=== PATIENT | male | born 1945 | race Caucasian/White ===

== ENCOUNTER 2018-05-11 12:55 | Emergency (ER) | payer MEDICARE ==
[~2018-05-11] VITALS: Ht 170.2 cm; Wt 78.6 kg
[2018-05-11 13:20] VITALS: BP 159/95
--- NOTE | 2018-05-11 14:19 | NUR ---
PT NOT IN ROOM.
== END 2018-05-11 14:20 | disposition left against medical advice (07) ==
LOC: ED 14:14
DX: M25.571 Pain in right ankle and joints of right foot (principal)
CPT/HCPCS: 99283

== ENCOUNTER 2019-11-22 14:46 | Emergency (ER) | payer MEDICARE ==
[~2019-11-22] VITALS: Ht 170.2 cm; Wt 77.2 kg
[~2019-11-22 14:46] MED LIST: ASPI-515 PO; ATOR10TA9 PO; CLOP75TA PO; ISOS20TA3 PO; LEVO25TA4 PO; LISI-170 PO; LOVA20TA2 PO; METO25TA91 PO; NITR0.6T4 SL; RANO500T2 PO
[2019-11-22] MEDS ORDERED: ASPIRIN 81 MG TABLET CHEW PO ONE (15:30)
[2019-11-22 15:34] LABS: BASOPHILS # (AUTO) 0.02 x10^3/uL (0-0.1); BASOPHILS % (AUTO) 1 % (0-1); EOSINOPHILS # (AUTO) 0.26 x10^3/uL (0-0.4); EOSINOPHILS % (AUTO) 6 % (1-7); LYMPHOCYTES # (AUTO) 0.76 x10^3/uL (1-3.4); LYMPHOCYTES % (AUTO) 17 % (22-44); MD NO; MEAN CORPUSCULAR HEMOGLOBIN 30.6 pg (27.5-34.5); MEAN CORPUSCULAR HGB CONC 33.5 g/dL (33.2-36.2); MEAN CORPUSCULAR VOLUME 91.4 fL (81-97); MEAN PLATELET VOLUME 8.6 fL (7.4-10.4); MONOCYTES # (AUTO) 0.26 x10^3/uL (0.2-0.8); MONOCYTES % (AUTO) 6 % (2-9); NEUTROPHILS # (AUTO) 3.14 x10^3/uL (1.8-6.8); NEUTROPHILS % (AUTO) 71 % (42-75); PLATELET COUNT 119 x10^3/uL (130-400); RED BLOOD COUNT 3.71 x10^6/uL (4.38-5.82); RED CELL DISTRIBUTION WIDTH 16.8 % (9.4-14.8)
[2019-11-22 15:44] LABS: ALANINE AMINOTRANSFERASE 25 U/L (12-78); ALBUMIN 3.6 g/dL (3.4-5.0); ANION GAP 9 mmol/L (5-15); CALCIUM 9.1 mg/dL (8.5-10.1); CHLORIDE 110 mmol/L (98-107)
[2019-11-22] MEDS ORDERED: ASPIRIN 81 MG TABLET CHEW ONE (15:44)
[2019-11-22] MEDS ORDERED: NITROGLYCERIN SINGLE TAB 0.4 MG SL ONE (15:45)
[2019-11-22 15:49] LABS: ALKALINE PHOSPHATASE 66 U/L (45-117); BILIRUBIN,TOTAL 0.9 mg/dL (0.2-1.0); TOTAL PROTEIN 6.7 g/dL (6.4-8.2); TROPONIN I 0.042 ng/mL (0.000-0.045)
[2019-11-22] MEDS ORDERED: NEOSPORIN OINT. PKT 1 PACKET ONE (15:49)
[2019-11-22] MEDS ORDERED: NITROGLYCERIN OINT 2%, 1GM TP ONE ×2 (15:49→16:00)
--- NOTE | 2019-11-22 16:45 | NUR ---
Patient given discharge instructions and they have confirmed that they understand the instructions. Patient ambulatory with steady gait.
[2019-11-22 16:51] VITALS: BP 127/76
== END 2019-11-22 16:53 | disposition home or self-care (01) ==
LOC: ED 15:32
DX: R07.89 Other chest pain (principal); D64.9 Anemia, unspecified; N28.9 Disorder of kidney and ureter, unspecified; I44.7 Left bundle-branch block, unspecified; I25.2 Old myocardial infarction
CPT/HCPCS: 36415; 71045; 80053; 83690; 84484; 85025; 93005; 99285

== ENCOUNTER 2019-11-29 14:22 | Emergency (ER) | payer MEDICARE ==
[~2019-11-29] VITALS: Ht 170.2 cm; Wt 79.4 kg
[2019-11-29 14:27] VITALS: BP 134/71
--- NOTE | 2019-11-29 14:59 | NUR ---
PT TO ROOM
--- NOTE | 2019-11-29 16:23 | NUR ---
PT LEFT PRIOR TO DISCHARGE. PAPERWORK AT CHARGE DESK
== END 2019-11-29 16:20 ==
LOC: ED 15:00
DX: L03.032 Cellulitis of left toe (principal); M79.672 Pain in left foot; I25.2 Old myocardial infarction; Z87.891 Personal history of nicotine dependence; Z98.61 Coronary angioplasty status
CPT/HCPCS: 99283

== ENCOUNTER 2019-12-13 03:32 | Emergency (ER) | payer MEDICARE ==
[~2019-12-13] VITALS: Ht 170.2 cm; Wt 78.0 kg
[~2019-12-13 03:32] MED LIST changes: +AMOX-291 PO; +ISOS30TA8 PO; +LISI-167 PO; +OMEP20TA62 PO
[2019-12-13 04:38] LABS: MEAN CORPUSCULAR HEMOGLOBIN 30.3 pg (27.5-34.5); MEAN CORPUSCULAR HGB CONC 33.4 g/dL (33.2-36.2); MEAN PLATELET VOLUME 8.7 fL (7.4-10.4); PLATELET COUNT 113 x10^3/uL (130-400); RED BLOOD COUNT 4.12 x10^6/uL (4.38-5.82); RED CELL DISTRIBUTION WIDTH 15.2 % (9.4-14.8)
[2019-12-13 04:44] LABS: ANION GAP 8 mmol/L (5-15); CALCIUM 9.4 mg/dL (8.5-10.1); CHLORIDE 103 mmol/L (98-107)
[2019-12-13 04:48] LABS: TROPONIN I 0.109 ng/mL (0.000-0.045)
[2019-12-13] MEDS ORDERED: SODIUM CHLORIDE 0.9% 1,000ML IVBOLUS ONE (05:00)
[2019-12-13 05:01] LABS: MD YES
[2019-12-13 05:41] VITALS: BP 122/64
[2019-12-13 05:41] LABS: EOS#(MANUAL) 0.16 x10^3/uL (0.0-0.4); EOS% (MANUAL) 6 % (1-7); LYMPH#(MANUAL) 0.57 x10^3/uL (1-3.4); LYMPHS% (MANUAL) 21 % (22-44); MONOS% (MANUAL) 11 % (2-9); SEG#(MANUAL) 1.67 x10^3/uL (1.8-6.8); SEGS% (MANUAL) 62 % (42-75)
[2019-12-13 05:42] LABS: <PLATELET ESTIMATE> DECREASED; <PLT MORPHOLOGY> NORMAL PLT MORPH; <RBC MORPHOLOGY> NORMAL
== END 2019-12-13 05:44 | disposition home or self-care (01) ==
LOC: ED 04:06
DX: R07.89 Other chest pain (principal); I20.8 Other forms of angina pectoris; R94.31 Abnormal electrocardiogram [ECG] [EKG]; I10 Essential (primary) hypertension; I25.2 Old myocardial infarction; I48.91 Unspecified atrial fibrillation; Z87.891 Personal history of nicotine dependence; Z98.61 Coronary angioplasty status
CPT/HCPCS: 36415; 80048; 84484; 85025; 93005; 99284

== ENCOUNTER 2020-01-16 02:50 | Emergency (ER) | payer MEDICARE ==
[~2020-01-16] VITALS: Ht 170.2 cm; Wt 69.8 kg
--- NOTE | 2020-01-16 03:02 | NUR ---
triage note: EKG completed in triage
[2020-01-16] MEDS ORDERED: ACETAMINOPHEN 325 MG TABLET PO ONE (03:30)
[2020-01-16] MEDS ORDERED: ACETAMINOPHEN 325 MG TABLET ONE (03:31)
[2020-01-16 03:49] LABS: BASOPHILS % (AUTO) 1 % (0-1); EOSINOPHILS % (AUTO) 1 % (1-7); LYMPHOCYTES % (AUTO) 11 % (22-44); MEAN CORPUSCULAR HEMOGLOBIN 30.2 pg (27.5-34.5); MEAN CORPUSCULAR HGB CONC 33.6 g/dL (33.2-36.2); MONOCYTES % (AUTO) 6 % (2-9); NEUTROPHILS % (AUTO) 81 % (42-75); PLATELET COUNT 77 x10^3/uL (130-400); RED BLOOD COUNT 4.08 x10^6/uL (4.38-5.82); RED CELL DISTRIBUTION WIDTH 16.9 % (9.4-14.8)
[2020-01-16 03:50] LABS: MD NO
[2020-01-16 03:58] LABS: ALBUMIN 3.4 g/dL (3.4-5.0); ANION GAP 8 mmol/L (5-15); CALCIUM 8.8 mg/dL (8.5-10.1); CHLORIDE 110 mmol/L (98-107); CREATININE 1.01 mg/dL (0.7-1.3)
[2020-01-16 04:02] LABS: TROPONIN I 0.082 ng/mL (0.000-0.045)
[2020-01-16 04:58] VITALS: BP 116/42
== END 2020-01-16 05:00 ==
LOC: ED 04:43
DX: R07.89 Other chest pain (principal); R79.89 Other specified abnormal findings of blood chemistry; I44.7 Left bundle-branch block, unspecified; Z72.9 Problem related to lifestyle, unspecified; Z79.01 Long term (current) use of anticoagulants; I10 Essential (primary) hypertension; I25.2 Old myocardial infarction; Z87.891 Personal history of nicotine dependence
CPT/HCPCS: 36415; 71045; 80048; 82040; 84484; 85025; 93005; 99285

== ENCOUNTER 2020-01-17 22:30 | Inpatient (IN) | payer MEDICARE ==
[~2020-01-17] VITALS: Ht 170.2 cm; Wt 68.5 kg
[2020-01-17] MEDS ORDERED: ASPIRIN 81 MG TABLET CHEW PO ONE (23:00)
[2020-01-17 23:55] LABS: BASOPHILS % (AUTO) 0 % (0-1); EOSINOPHILS % (AUTO) 2 % (1-7); LYMPHOCYTES % (AUTO) 14 % (22-44); MEAN CORPUSCULAR HEMOGLOBIN 29.9 pg (27.5-34.5); MEAN PLATELET VOLUME 8.8 fL (7.4-10.4); MONOCYTES % (AUTO) 4 % (2-9); NEUTROPHILS % (AUTO) 80 % (42-75); PLATELET COUNT 88 x10^3/uL (130-400); RED BLOOD COUNT 4.39 x10^6/uL (4.38-5.82); RED CELL DISTRIBUTION WIDTH 17.6 % (9.4-14.8)
[2020-01-17 23:59] LABS: MD NO
[2020-01-18 00:06] LABS: ALBUMIN 3.7 g/dL (3.4-5.0); ANION GAP 5 mmol/L (5-15); CALCIUM 8.8 mg/dL (8.5-10.1); CHLORIDE 112 mmol/L (98-107)
[2020-01-18 00:13] LABS: ALANINE AMINOTRANSFERASE 40 U/L (12-78); ALKALINE PHOSPHATASE 76 U/L (45-117); BILIRUBIN,TOTAL 0.9 mg/dL (0.2-1.0); CREATININE 1.18 mg/dL (0.7-1.3); TOTAL PROTEIN 7.1 g/dL (6.4-8.2); TROPONIN I 0.061 ng/mL (0.000-0.045)
[2020-01-18] MEDS ORDERED: ASPIRIN 81 MG TABLET CHEW ONE ×2 (01:13→03:02)
--- NOTE | 2020-01-18 01:24 | NUR ---
PT AMBULATED TO THE ROOM WITH A SLOW AND STEADY GAIT. PT PLACED ON MONITORS AND GIVEN 162 ASA. PT IN NAD. CALL LIGHT IN REACH
--- NOTE | 2020-01-18 02:18 | NUR ---
LAB AT BEDSIDE FOR 2ND TROP. VSS. PT HAS NO NEEDS. CALL LIGHT IN REACH
[2020-01-18 02:57] LABS: TROPONIN I 0.141 ng/mL (0.000-0.045)
[2020-01-18] MEDS ORDERED: SODIUM CHLORIDE FLUSH 10ML SYR IVF ONE (03:00)
[2020-01-18] MEDS ORDERED: MORPHINE SULFATE 4 MG/ML, 1ML IVPush PRN (03:00)
[2020-01-18] MEDS ORDERED: NITROGLYCERIN OINT 2%, 1GM TP ONE ×2 (03:00→04:39)
[2020-01-18] MEDS ORDERED: ONDANSETRON 2MG/ML, 2ML IVPush ONE (03:00)
[2020-01-18] MEDS ORDERED: ASPIRIN 81 MG TABLET CHEW PO ONE (03:00)
--- NOTE | 2020-01-18 03:30 | NUR ---
PIV ATTEMPTED X 2 WITH NO LUCK. ANOTHER RN AT BEDSIDE TO PLACE. PT GIVEN 162 MG ASA
[2020-01-18] MEDS ORDERED: HEPARIN 5,000 UNITS/ML, 1ML IV ONE (04:00)
[2020-01-18] MEDS ORDERED: NITROGLYCERIN SINGLE TAB 0.4 MG SL PRN (04:00)
[2020-01-18] MEDS ORDERED: HEPARIN 25,000 UNITS/250ML PMX 250 ML IV PRN (04:00)
[2020-01-18] MEDS ORDERED: morphine SULFATE 10 MG/ML, 1ML IV PRN (04:00)
[2020-01-18] MEDS ORDERED: HEPARIN 5,000 UNITS/ML, 1ML IV PRN (04:00)
--- NOTE | 2020-01-18 04:19 | NUR ---
STILL UNABLE TO OBTAIN PIV. PERFECTO FOURNIER AT BEDSIDE FOR US PIV.
[2020-01-18 04:26] LABS: INTERNATIONAL NORMALIZED RATIO 1.14 (0.93-1.1); PROTHROMBIN TIME 12.1 Seconds (9.6-11.5)
[2020-01-18] MEDS ORDERED: HEPARIN 25,000 UNITS/250ML PMX 250 ML ONE (04:39)
[2020-01-18] MEDS ORDERED: HEPARIN 5,000 UNITS/ML, 1ML ONE (04:39)
--- NOTE | 2020-01-18 04:58 | NUR ---
HEPARIN DRIP STARTED AT 800 UNITS/HR. VSS. ANTI XA ORDER ENTERED. PT IN NAD. CALL LIGHT IN REACH
[2020-01-18 05:29] LABS: CHOLESTEROL, TOTAL 111 mg/dL (140-239); TRIGLYCERIDES 90 mg/dL (50-200); VLDL CHOLESTEROL 18 mg/dL (0-25)
[2020-01-18 05:32] LABS: CHOL/HDL RATIO 2.2; HDL CHOLESTEROL (DIRECT) 50 mg/dL (40-60)
[2020-01-18 05:33] LABS: HDL CHOL % 45 % (26-37); LDL CHOLESTEROL,CALCULATED 43 mg/dL (54-169); LDL/HDL RATIO 0.9 (0.5-3.0)
[2020-01-18 05:41] LABS: TROPONIN I 0.174 ng/mL (0.000-0.045)
[2020-01-18 06:11] VITALS: BP 133/72
[2020-01-18] MEDS: LEVOTHYROXINE 25 MCG TABLET PO SCH (06:29)
[2020-01-18] MEDS: ENOXAPARIN 40 MG/0.4 ML SQ SCH (07:00)
[2020-01-18] MEDS: CLOPIDOGREL 75 MG TABLET PO SCH (08:10)
[2020-01-18] MEDS: ISOSORBIDE MONONITRATE ER 60 MG TABLET PO SCH (08:29)
[2020-01-18] MEDS: LISINOPRIL 5 MG TABLET PO SCH (08:29)
[2020-01-18] MEDS: SODIUM CHLORIDE FLUSH 10ML SYR IVF SCH ×2 (08:30→20:06)
[2020-01-18] MEDS: METOPROLOL SUCCINATE 50 MG TAB.ER.24H PO SCH (08:30)
[2020-01-18] MEDS: OMEPRAZOLE 20 MG CAPSULE.DR PO SCH ×2 (08:30→20:05)
[2020-01-18 08:44] LABS: TROPONIN I 0.177 ng/mL (0.000-0.045)
[2020-01-18] MEDS: SODIUM CHLORIDE 0.9% 1,000 ML IV SCH ×3 (10:06→19:50)
[2020-01-18] MEDS ORDERED: FENTANYL PF 100 MCG/2ML ONE (12:34)
[2020-01-18] MEDS ORDERED: VERAPAMIL 2.5 MG/ML, 2ML ONE (12:34)
[2020-01-18] MEDS ORDERED: HEPARIN 1,000 UNITS/ML, 10ML ONE (12:34)
[2020-01-18] MEDS ORDERED: LIDOCAINE-MPF 1%, 5ML ONE (12:34)
[2020-01-18] MEDS ORDERED: MIDAZOLAM 1 MG/ML, 2ML ONE (12:34)
[2020-01-18] MEDS ORDERED: NITROGLYCERIN 30 MCG/ML, 20ML VIAL ONE (12:34)
[2020-01-18] MEDS ORDERED: BIVALIRUDIN 250 MG ONE (12:39)
[2020-01-18 14:00] VITALS: BP 105/57
[2020-01-18 15:19] LABS: BASOPHILS % (AUTO) 1 % (0-1); EOSINOPHILS % (AUTO) 4 % (1-7); LYMPHOCYTES % (AUTO) 27 % (22-44); MEAN CORPUSCULAR HEMOGLOBIN 30.2 pg (27.5-34.5); MEAN CORPUSCULAR HGB CONC 33.4 g/dL (33.2-36.2); MEAN PLATELET VOLUME 8.7 fL (7.4-10.4); MONOCYTES % (AUTO) 4 % (2-9); NEUTROPHILS % (AUTO) 64 % (42-75); PLATELET COUNT 74 x10^3/uL (130-400); RED BLOOD COUNT 3.73 x10^6/uL (4.38-5.82); RED CELL DISTRIBUTION WIDTH 17.2 % (9.4-14.8)
[2020-01-18 15:27] LABS: MD NO
[2020-01-18 19:20] VITALS: BP 89/52
[2020-01-18 19:52] VITALS: BP 98/50
[2020-01-18] MEDS ORDERED: ATORVASTATIN 80 MG TABLET PO SCH (21:00)
[2020-01-18 21:36] VITALS: BP 103/56
[2020-01-19] MEDS: SODIUM CHLORIDE 0.9% 1,000 ML IV SCH ×2 (00:20→06:30)
[2020-01-19 01:00] VITALS: BP 100/57
[2020-01-19 05:35] LABS: BASOPHILS % (AUTO) 1 % (0-1); EOSINOPHILS % (AUTO) 3 % (1-7); LYMPHOCYTES % (AUTO) 21 % (22-44); MEAN CORPUSCULAR HEMOGLOBIN 30.6 pg (27.5-34.5); MEAN CORPUSCULAR HGB CONC 33.8 g/dL (33.2-36.2); MEAN PLATELET VOLUME 9.2 fL (7.4-10.4); MONOCYTES % (AUTO) 6 % (2-9); NEUTROPHILS % (AUTO) 69 % (42-75); PLATELET COUNT 62 x10^3/uL (130-400); RED BLOOD COUNT 3.23 x10^6/uL (4.38-5.82)
[2020-01-19 05:41] LABS: ANION GAP 5 mmol/L (5-15); CALCIUM 8.3 mg/dL (8.5-10.1); CHLORIDE 116 mmol/L (98-107); CREATININE 1.06 mg/dL (0.7-1.3)
[2020-01-19] MEDS ORDERED: ASPIRIN 81 MG TABLET EC PO SCH (06:00)
[2020-01-19 06:18] LABS: MD SCAN
[2020-01-19] MEDS: LEVOTHYROXINE 25 MCG TABLET PO SCH (06:32)
[2020-01-19] MEDS: ENOXAPARIN 40 MG/0.4 ML SQ SCH (06:33)
[2020-01-19 07:36] VITALS: BP 131/66
[2020-01-19] MEDS: LISINOPRIL 5 MG TABLET PO SCH (09:48)
[2020-01-19] MEDS: OMEPRAZOLE 20 MG CAPSULE.DR PO SCH (09:48)
[2020-01-19] MEDS: CLOPIDOGREL 75 MG TABLET PO SCH (09:48)
[2020-01-19] MEDS: ISOSORBIDE MONONITRATE ER 60 MG TABLET PO SCH (09:48)
[2020-01-19] MEDS: METOPROLOL SUCCINATE 50 MG TAB.ER.24H PO SCH (09:48)
[2020-01-19] MEDS: SODIUM CHLORIDE FLUSH 10ML SYR IVF SCH (09:49)
[2020-01-19 12:04] VITALS: BP 122/63
[2020-01-19] MEDS ORDERED: OMEP20TA62 PO (13:36)
[2020-01-19] MEDS ORDERED: LISI-167 PO (13:36)
[2020-01-19] MEDS ORDERED: LEVO25TA4 PO (13:36)
[2020-01-19] MEDS ORDERED: ATOR-2 PO (13:36)
[2020-01-19] MEDS ORDERED: CLOP75TA PO (13:36)
[2020-01-19] MEDS ORDERED: ISOS30TA8 PO (13:36)
[2020-01-19] MEDS ORDERED: NITR0.6T4 SL (13:36)
[2020-01-19] MEDS ORDERED: METO25TA91 PO (13:36)
[2020-01-19] MEDS ORDERED: ASPI-515 PO (13:36)
== END 2020-01-19 18:10 | disposition home or self-care (01) | DRG 281 ==
LOC: ED 01-18 01:26 → EDIP 01-18 03:01 → 5SO 01-18 06:05
PROVIDERS: ADMIT Family Medicine; ATTEND Internal Medicine
PROC: 4A023N7 Measurement of Cardiac Sampling and Pressure, Left Heart, Percutaneous Approach (ICD-10-PCS; principal; 2020-01-18)
PROC: B2111ZZ Fluoroscopy of Multiple Coronary Arteries using Low Osmolar Contrast (ICD-10-PCS; 2020-01-18)
PROC: B2131ZZ Fluoroscopy of Multiple Coronary Artery Bypass Grafts using Low Osmolar Contrast (ICD-10-PCS; 2020-01-18)
PROC: B2151ZZ Fluoroscopy of Left Heart using Low Osmolar Contrast (ICD-10-PCS; 2020-01-18)
PROC: B2181ZZ Fluoroscopy of Left Internal Mammary Bypass Graft using Low Osmolar Contrast (ICD-10-PCS; 2020-01-18)
DX: I21.4 Non-ST elevation (NSTEMI) myocardial infarction (principal); I50.42 Chronic combined systolic (congestive) and diastolic (congestive) heart failure; I25.5 Ischemic cardiomyopathy; I44.7 Left bundle-branch block, unspecified; D69.6 Thrombocytopenia, unspecified; E03.9 Hypothyroidism, unspecified; E78.5 Hyperlipidemia, unspecified; I11.0 Hypertensive heart disease with heart failure; I25.110 Atherosclerotic heart disease of native coronary artery with unstable angina pectoris; I73.9 Peripheral vascular disease, unspecified; G89.29 Other chronic pain; Z59.0 Homelessness; Z91.19 Patient's noncompliance with other medical treatment and regimen; Z95.1 Presence of aortocoronary bypass graft; Z95.2 Presence of prosthetic heart valve; Z95.5 Presence of coronary angioplasty implant and graft; Z88.5 Allergy status to narcotic agent
CPT/HCPCS: 36415; 71045; 80048; 80053; 80061; 84484; 85025; 85520; 85610; 85730; 93005; 93459; 99156; 99157; C1769; C1894; G0378; J0583; J1644; J1650; J2250; J3010; J7030; Q9967

== ENCOUNTER 2020-01-27 05:30 | Emergency (ER) | payer MEDICARE ==
[~2020-01-27] VITALS: Ht 170.2 cm; Wt 73.9 kg
[~2020-01-27 05:30] MED LIST changes: +ATOR-2 PO
--- NOTE | 2020-01-27 05:50 | NUR ---
75 Y/O MALE PRESENTS TO THE ER C/O CHEST PAIN THAT STARTED AT APPROX 0400 THIS AM.DESCRIBED A SUBSTERNAL "HEAVINESS", THAT RADIATED TO RIGHT ARM AND LOWER BACK. PAIN 5/10. PT DENIES ANY OTHER ASSOCIATED SYMPTOMS. PT STATES HE WALKED HERE [facility]. PT STATES HIS CHEST DISCOMFORT DID NOT CHANGE DURING HIS WALK HERE. IT HAS SUBSIDED SOME SINCE ARRIVING TO THE ER, THE PAIN IS MORE LOCALIZED TO HIS LOWER BACK AT THIS TIME. ALL MONITORING EQUIPMENT IN PLACE. SINUS ARRYTHMIA, WITH A LBBB, PT HAS A HX OF THIS. NO OTHER ECTOPY NOTED OR ST CHANGES PRESENT. ALL VITALS STABLE. PT PROVIDED WITH WARM BLANKETS. DENIES ANY OTHER NEEDS AT THIS TIME.
[2020-01-27] MEDS ORDERED: SODIUM CHLORIDE FLUSH 10ML SYR IVF ONE (06:00)
[2020-01-27] MEDS ORDERED: ASPIRIN 81 MG TABLET CHEW PO ONE (06:00)
[2020-01-27] MEDS ORDERED: ASPIRIN 81 MG TABLET CHEW ONE (06:04)
--- NOTE | 2020-01-27 06:08 | NUR ---
PT MEDICATED PER EMAR. 5 RIGHTS ADDRESSED
--- NOTE | 2020-01-27 06:21 | NUR ---
WILLIS ESTABLISHED, ATTEMPTED TO DRAW LABS WITHOUT SUCCESS.
--- NOTE | 2020-01-27 06:30 | NUR ---
LAB AT BEDSIDE
[2020-01-27 06:31] VITALS: BP 115/78
[2020-01-27 06:48] LABS: BASOPHILS % (AUTO) 1 % (0-1); EOSINOPHILS % (AUTO) 3 % (1-7); LYMPHOCYTES % (AUTO) 21 % (22-44); MEAN CORPUSCULAR HEMOGLOBIN 30.8 pg (27.5-34.5); MEAN CORPUSCULAR HGB CONC 33.8 g/dL (33.2-36.2); MEAN PLATELET VOLUME 8.4 fL (7.4-10.4); MONOCYTES % (AUTO) 6 % (2-9); NEUTROPHILS % (AUTO) 70 % (42-75); PLATELET COUNT 85 x10^3/uL (130-400); RED BLOOD COUNT 3.32 x10^6/uL (4.38-5.82); RED CELL DISTRIBUTION WIDTH 16.8 % (9.4-14.8)
[2020-01-27 06:49] LABS: MD NO
[2020-01-27 06:53] LABS: ALBUMIN 2.9 g/dL (3.4-5.0); ANION GAP 4 mmol/L (5-15); CALCIUM 8.3 mg/dL (8.5-10.1); CHLORIDE 114 mmol/L (98-107)
[2020-01-27 06:59] LABS: ALANINE AMINOTRANSFERASE 23 U/L (12-78); ALKALINE PHOSPHATASE 68 U/L (45-117); BILIRUBIN,TOTAL 0.7 mg/dL (0.2-1.0); CREATININE 0.95 mg/dL (0.7-1.3); TOTAL PROTEIN 5.5 g/dL (6.4-8.2); TROPONIN I 0.028 ng/mL (0.000-0.045)
--- NOTE | 2020-01-27 07:04 | NUR ---
REPORT GIVEN TO IRLANDA TORRES.
--- NOTE | 2020-01-27 07:05 | NUR ---
SBAR HAND-OFF REPORT RECEIVED FROM IRLANDA POWELL. ASSUMING CARE OF PATIENT.
--- NOTE | 2020-01-27 09:30 | NUR ---
DINKEY ENGINE MECHANIC NOTE: PT DISCHARGED BY IRLANDA TORRES, PT GIVEN DC INSTRUCTIONS. PT AMBULATORY TO DC DESK WITH STEADY GAIT, NADN AT DC.
== END 2020-01-27 09:31 | disposition home or self-care (01) ==
LOC: ED 07:49
DX: D53.9 Nutritional anemia, unspecified (principal); I20.8 Other forms of angina pectoris; I48.20 Chronic atrial fibrillation, unspecified; R06.02 Shortness of breath; M54.5 Low back pain; M79.601 Pain in right arm; I10 Essential (primary) hypertension; I48.91 Unspecified atrial fibrillation; R07.89 Other chest pain; I44.7 Left bundle-branch block, unspecified; Z87.891 Personal history of nicotine dependence
CPT/HCPCS: 36415; 71045; 80053; 83735; 83880; 84484; 85025; 93005; 99285

== ENCOUNTER 2020-04-11 05:43 | Emergency (ER) | payer MEDICARE ==
[~2020-04-11] VITALS: Ht 170.2 cm; Wt 74.0 kg
[~2020-04-11 05:43] MED LIST changes: -ASPI-515 PO; +ASPI-963 PO; +ISOS20TA10 PO; -ISOS20TA3 PO
--- NOTE | 2020-04-11 05:53 | NUR ---
INITIAL PT CONTACT. PT PRESENTS TO ED VIA EMS C/O CHEST PAIN DESCRIBED "AN ELEPHANT SITTING ON MY CHEST". PT WAS SEEN AT [facility] ED APPROX 30 MINUTES PRIOR TO ARRIVAL HERE FOR SAME. PT WITH DX WITH EXERTIONAL CHEST PAIN AT [facility]. PT WAS GIVEN 324MG ASA, 0.8MG NTG WITH EMS, PT REPORTS DECREASING PAIN FOLLOWING COUNSELOR/ART THERAPIST EN ROUTE. PT HAS EXTENSIVE CARDIAC HX AND REPORTS "NOT BEEN TAKING MY MEDS, THEY HAVE ALL BEEN STOLEN, SO I DON'T TAKE THEM". PT SITTING UPRIGHT ON GURNEY, NADN, VSS. PT DENIES ANY NEEDS AT THIS TIME. CALL LIGHT AND PERSONAL BELONGINGS WITHIN REACH. ERP AT BEDSIDE. EKG COMPLETE UPON ARRIVAL.
[2020-04-11] MEDS ORDERED: SODIUM CHLORIDE FLUSH 10ML SYR IVF ONE (06:30)
[2020-04-11 06:35] LABS: BASOPHILS % (AUTO) 1 % (0-1); EOSINOPHILS % (AUTO) 1 % (1-7); LYMPHOCYTES % (AUTO) 13 % (22-44); MEAN CORPUSCULAR HEMOGLOBIN 29.7 pg (27.5-34.5); MEAN CORPUSCULAR HGB CONC 34.1 g/dL (33.2-36.2); MEAN PLATELET VOLUME 8.7 fL (7.4-10.4); MONOCYTES % (AUTO) 5 % (2-9); NEUTROPHILS % (AUTO) 81 % (42-75); PLATELET COUNT 106 x10^3/uL (130-400); RED BLOOD COUNT 4.54 x10^6/uL (4.38-5.82); RED CELL DISTRIBUTION WIDTH 14.7 % (9.4-14.8)
[2020-04-11 06:36] LABS: MD NO
[2020-04-11 06:43] LABS: ALBUMIN 3.8 g/dL (3.4-5.0); ANION GAP 12 mmol/L (5-15); CALCIUM 9.1 mg/dL (8.5-10.1); CHLORIDE 108 mmol/L (98-107)
[2020-04-11 06:47] LABS: CREATININE 1.44 mg/dL (0.7-1.3)
[2020-04-11 06:48] LABS: TROPONIN I 0.781 ng/mL (0.000-0.045)
--- NOTE | 2020-04-11 06:49 | NUR ---
BEDSIDE REPORT TO YODIT FOURNIER
--- NOTE | 2020-04-11 07:05 | NUR ---
Triage edited to add accurate weight from built in bed scale.
--- NOTE | 2020-04-11 07:09 | NUR ---
Pt sleeping, visible chest rise and fall.
--- NOTE | 2020-04-11 07:16 | NUR ---
MD LARSEN BACK TO BEDSIDE TO UPDATE PT ON POC.
--- NOTE | 2020-04-11 08:51 | NUR ---
Awaiting social work consult.
--- NOTE | 2020-04-11 09:59 | NUR ---
Pt given breakfast meal tray.
[2020-04-11 10:53] VITALS: BP 125/83
--- NOTE | 2020-04-11 11:06 | NUR ---
Pt denied waiting for SW consult. Pt given education about follow up appts, primary care, and homeless resources. Pt denied taxi voucher.
== END 2020-04-11 11:08 | disposition home or self-care (01) ==
LOC: ED 06:34
DX: R07.2 Precordial pain (principal); R06.02 Shortness of breath; I10 Essential (primary) hypertension; I44.7 Left bundle-branch block, unspecified; I20.8 Other forms of angina pectoris; I48.91 Unspecified atrial fibrillation; I25.2 Old myocardial infarction
CPT/HCPCS: 36415; 71045; 80048; 82040; 84484; 85025; 93005; 99285

== ENCOUNTER 2020-04-25 23:55 | Emergency (ER) | payer MEDICARE ==
[~2020-04-25] VITALS: Ht 170.2 cm; Wt 75.0 kg
--- NOTE | 2020-04-26 00:10 | NUR ---
Provided pt warm blanket. EKG done, hooked up to monitor.
--- NOTE | 2020-04-26 00:20 | NUR ---
XR at bedside.
--- NOTE | 2020-04-26 00:27 | NUR ---
Pt arrived via [facility] from [facility]. Reports chest pain started about 1 hr CARE PROCESS MANAGER while he was packing his suitcase. Relieved with rest and nitro which was given CARE PROCESS MANAGER. 324 aspirin also given CARE PROCESS MANAGER. Pt reports hx quadruple bypass, stents, heart attack. Was recently discharged from ED and told he had a "mild" heart attack- was dc'd with nitro patch which pt is wearing today. Pt A+0x4, reports he had SOB when chest pain started but not now. Denies radiation of the chest pain, reports it is only in the center of his chest.
[2020-04-26] MEDS ORDERED: ASPIRIN 81 MG TABLET CHEW PO ONE (00:30)
--- NOTE | 2020-04-26 00:32 | NUR ---
Lab at bedside.
[2020-04-26 00:53] LABS: BASOPHILS % (AUTO) 1 % (0-1); EOSINOPHILS % (AUTO) 3 % (1-7); LYMPHOCYTES % (AUTO) 16 % (22-44); MEAN CORPUSCULAR HEMOGLOBIN 29.9 pg (27.5-34.5); MEAN CORPUSCULAR HGB CONC 34.4 g/dL (33.2-36.2); MONOCYTES % (AUTO) 5 % (2-9); NEUTROPHILS % (AUTO) 75 % (42-75); PLATELET COUNT 84 x10^3/uL (130-400); RED BLOOD COUNT 4.08 x10^6/uL (4.38-5.82); RED CELL DISTRIBUTION WIDTH 14.7 % (9.4-14.8)
[2020-04-26 00:54] LABS: MD NO
[2020-04-26 01:00] LABS: ALANINE AMINOTRANSFERASE 21 U/L (12-78); ALBUMIN 3.3 g/dL (3.4-5.0); ANION GAP 8 mmol/L (5-15); CALCIUM 8.4 mg/dL (8.5-10.1); CHLORIDE 112 mmol/L (98-107); CREATININE 1.21 mg/dL (0.7-1.3)
[2020-04-26 01:04] LABS: ALKALINE PHOSPHATASE 82 U/L (45-117); BILIRUBIN,TOTAL 0.8 mg/dL (0.2-1.0); TOTAL PROTEIN 6.2 g/dL (6.4-8.2); TROPONIN I 0.023 ng/mL (0.000-0.045)
--- NOTE | 2020-04-26 01:05 | NUR ---
Aspirin ordered- not given per MD approval, 324 aspirin was given WEATHER STRIP MECHANIC.
--- NOTE | 2020-04-26 01:42 | NUR ---
RN at bedside, provided pt water okay'd by Dr. Cr. Updated pt on plan.
--- NOTE | 2020-04-26 01:50 | NUR ---
Admitting doctor at bedside.
--- NOTE | 2020-04-26 02:24 | NUR ---
RN at bedside. Updating pt on plan- not sure if admitting or not. Will repeat troponin at 0330. Pt reports he is not currently having any chest pain or SOB.
--- NOTE | 2020-04-26 03:05 | NUR ---
Report to IRLANDA Aguillon.
--- NOTE | 2020-04-26 03:36 | NUR ---
Note pepeone in EDM - 04/26/20 at 0337 by SAYDA patient repeats request for pain medication. FLACC 0. warm blankets provided. safety maintained. call rendon in reach. VS remain stable on RA. will continue to monitor.
--- NOTE | 2020-04-26 03:37 | NUR ---
patient resting in bed in NAD. safety maintained. denies CP/SOB at this time. home nitro patch remains in place on L upper chest. call rendon in reach. watching TV. VS remain stable on RA. repeat trop completed and waiting for result. will continue to monitor
--- NOTE | 2020-04-26 03:37 | NUR ---
previous note done in error on wrong patient
[2020-04-26 03:56] LABS: TROPONIN I 0.029 ng/mL (0.000-0.045)
--- NOTE | 2020-04-26 04:45 | NUR ---
discharge instructions reviewed with patient. no further questions. IV removed per dc protocol. denies CP/SOB on DC. nitro patch from home left in place on patient. all personal belongings with patient on dc. steady gait to lobby
[2020-04-26 04:54] VITALS: BP 166/97
== END 2020-04-26 04:57 | disposition home or self-care (01) ==
LOC: ED 23:58
DX: R07.9 Chest pain, unspecified (principal); I25.2 Old myocardial infarction; I11.9 Hypertensive heart disease without heart failure; I48.91 Unspecified atrial fibrillation; Z87.891 Personal history of nicotine dependence; Z98.61 Coronary angioplasty status; Z95.1 Presence of aortocoronary bypass graft
CPT/HCPCS: 36415; 71045; 80053; 84484; 85025; 93005; 99285

== ENCOUNTER 2020-06-01 08:46 | Emergency (ER) | payer MEDICARE ==
[~2020-06-01] VITALS: Ht 170.2 cm; Wt 71.6 kg
[2020-06-01 08:50] VITALS: BP 138/93
--- NOTE | 2020-06-01 08:59 | NUR ---
PT AMBULATORY TO ROOM 18 W/ C/O BILAT FEET BLISTERS X 1 WEEK. PT STATES HE IS HOMELESS AND WALKS EVERYWHERE. "I THOUGHT MAYBE NEW SHOES WOULD HELP BUT THEY HAVEN'T". NO VISIBLE BLISTERS NOTED. PT RESTING ON GURNEY. FIDENCIO. CONSUELO KELLER AT BEDSIDE FOR EVAL.
== END 2020-06-01 09:36 | disposition home or self-care (01) ==
LOC: ED 09:04
DX: S90.415A Abrasion, left lesser toe(s), initial encounter (principal); S90.821A Blister (nonthermal), right foot, initial encounter; I10 Essential (primary) hypertension; I25.2 Old myocardial infarction; I48.91 Unspecified atrial fibrillation; Z87.891 Personal history of nicotine dependence; X58.XXXA Exposure to other specified factors, initial encounter; Y93.89 Activity, other specified; Y92.89 Other specified places as the place of occurrence of the external cause; Y99.8 Other external cause status
CPT/HCPCS: 99282

== ENCOUNTER 2020-06-05 08:19 | Emergency (ER) | payer MEDICARE ==
[~2020-06-05] VITALS: Ht 170.2 cm; Wt 72.3 kg
[2020-06-05 08:33] VITALS: BP 138/66
--- NOTE | 2020-06-05 09:05 | NUR ---
PT HAD NO BLISTERS ON HIS FEET. PUT GAUZE IN BETWEEN LEFT SECOND AND THIRD TOES TO PREVENT RUBBING OF CALLUOUSES.
== END 2020-06-05 09:07 | disposition home or self-care (01) ==
LOC: ED 08:42
DX: S90.32XA Contusion of left foot, initial encounter (principal); S90.31XA Contusion of right foot, initial encounter; M79.89 Other specified soft tissue disorders; I10 Essential (primary) hypertension; X58.XXXA Exposure to other specified factors, initial encounter; Y93.89 Activity, other specified; Y92.89 Other specified places as the place of occurrence of the external cause; Y99.8 Other external cause status
CPT/HCPCS: 99282

== ENCOUNTER 2020-06-07 23:12 | Emergency (ER) | payer MEDICARE ==
[~2020-06-07] VITALS: Ht 170.2 cm; Wt 74.0 kg
--- NOTE | 2020-06-07 23:22 | NUR ---
BIBA FOR CP THAT WOKE PT UP FROM SLEEP, PT RATED 10/10 BEFORE NITRO AND ASPIRIN, NOW 7/10. CP IS CENTER IN CHEST, NON RADIATING AND NO ASSOCIATED SYMPTOMS. PT STATES "FEELS LIKE AN ELEPHANT IS SITTING ON MY CHEST". PT HAS HX OF 4 CABG AND 2 STENTS.
[2020-06-07] MEDS ORDERED: SODIUM CHLORIDE FLUSH 10ML SYR IVF ONE (23:30)
[2020-06-07] MEDS ORDERED: HYDROmorphone 1 MG/ML, 1ML INJ IV ONE (23:30)
[2020-06-07] MEDS ORDERED: NITROGLYCERIN SINGLE TAB 0.4 MG SL PRN (23:30)
[2020-06-07] MEDS ORDERED: HYDROmorphone 1 MG/ML, 1ML INJ ONE (23:44)
[2020-06-07 23:46] LABS: BASOPHILS % (AUTO) 1 % (0-1); EOSINOPHILS % (AUTO) 5 % (1-7); LYMPHOCYTES % (AUTO) 34 % (22-44); MD NO; MEAN CORPUSCULAR HEMOGLOBIN 28.6 pg (27.5-34.5); MEAN CORPUSCULAR HGB CONC 33.4 g/dL (33.2-36.2); MEAN PLATELET VOLUME 8.9 fL (7.4-10.4); MONOCYTES % (AUTO) 9 % (2-9); NEUTROPHILS % (AUTO) 52 % (42-75); PLATELET COUNT 95 x10^3/uL (130-400); RED BLOOD COUNT 4.21 x10^6/uL (4.38-5.82); RED CELL DISTRIBUTION WIDTH 14.5 % (9.4-14.8)
[2020-06-07 23:54] LABS: ALANINE AMINOTRANSFERASE 13 U/L (12-78); ALBUMIN 3.3 g/dL (3.4-5.0); ANION GAP 3 mmol/L (5-15); CALCIUM 8.6 mg/dL (8.5-10.1); CHLORIDE 111 mmol/L (98-107); CREATININE 1.22 mg/dL (0.7-1.3)
[2020-06-07 23:58] LABS: ALKALINE PHOSPHATASE 73 U/L (45-117); BILIRUBIN,TOTAL 1.1 mg/dL (0.2-1.0); TOTAL PROTEIN 6.4 g/dL (6.4-8.2); TROPONIN I < 0.015 ng/mL (0.000-0.045)
--- NOTE | 2020-06-08 00:58 | NUR ---
PT UPDATED ON POC, PENDING TROP AT 0300. VERBALIZES UNDERSTANDING
--- NOTE | 2020-06-08 02:03 | NUR ---
PT SLEEPING, RESP EVEN AND UNLABORED.
--- NOTE | 2020-06-08 03:03 | NUR ---
report given to queta ritter
[2020-06-08 03:09] LABS: TROPONIN I 0.017 ng/mL (0.000-0.045)
[2020-06-08 03:31] VITALS: BP 138/56
--- NOTE | 2020-06-08 03:34 | NUR ---
Patient/Caregiver given discharge instructions and they have confirmed that they understand the instructions. Patient ambulatory with steady gait.
== END 2020-06-08 03:46 | disposition home or self-care (01) ==
LOC: ED 06-08 00:22
DX: R07.2 Precordial pain (principal); Z72.9 Problem related to lifestyle, unspecified; I10 Essential (primary) hypertension; I48.91 Unspecified atrial fibrillation; I25.2 Old myocardial infarction; Z87.891 Personal history of nicotine dependence
CPT/HCPCS: 36415; 71045; 80053; 84484; 85025; 93005; 99285

== ENCOUNTER 2020-07-21 20:02 | Emergency (ER) | payer MEDICARE ==
[~2020-07-21] VITALS: Ht 170.2 cm; Wt 71.1 kg
[~2020-07-21 20:02] MED LIST changes: +AMLO-150 PO; +ISOS60TA36 PO; +METO100T5 PO; +METO50TA4 PO
[2020-07-21 20:27] VITALS: BP 135/73
[2020-07-21] MEDS ORDERED: SODIUM CHLORIDE FLUSH 10ML SYR IVF ONE ×2 (20:30→21:30)
[2020-07-21 20:57] LABS: BASOPHILS % (AUTO) 1 % (0-1); EOSINOPHILS % (AUTO) 4 % (1-7); LYMPHOCYTES % (AUTO) 22 % (22-44); MEAN CORPUSCULAR HEMOGLOBIN 28.5 pg (27.5-34.5); MEAN CORPUSCULAR HGB CONC 33.7 g/dL (33.2-36.2); MEAN PLATELET VOLUME 8.3 fL (7.4-10.4); MONOCYTES % (AUTO) 6 % (2-9); NEUTROPHILS % (AUTO) 68 % (42-75); PLATELET COUNT 107 x10^3/uL (130-400); RED BLOOD COUNT 4.28 x10^6/uL (4.38-5.82); RED CELL DISTRIBUTION WIDTH 15.9 % (9.4-14.8)
[2020-07-21 21:02] LABS: MD NO
[2020-07-21 21:06] LABS: ALANINE AMINOTRANSFERASE 15 U/L (12-78); ALBUMIN 3.6 g/dL (3.4-5.0); ANION GAP 11 mmol/L (5-15); CALCIUM 8.6 mg/dL (8.5-10.1); CHLORIDE 110 mmol/L (98-107); CREATININE 1.37 mg/dL (0.7-1.3)
[2020-07-21 21:10] LABS: ALKALINE PHOSPHATASE 93 U/L (45-117); BILIRUBIN,TOTAL 1.4 mg/dL (0.2-1.0); TOTAL PROTEIN 6.8 g/dL (6.4-8.2)
[2020-07-21] MEDS ORDERED: ONDANSETRON 2MG/ML, 2ML ONE (21:30)
[2020-07-21] MEDS ORDERED: ONDANSETRON 2MG/ML, 2ML IVPush ONE (21:30)
[2020-07-21] MEDS ORDERED: ASPIRIN 81 MG TABLET CHEW ONE (21:30)
[2020-07-21] MEDS ORDERED: ASPIRIN 81 MG TABLET CHEW PO ONE (21:30)
[2020-07-21] MEDS ORDERED: NITROGLYCERIN SINGLE TAB 0.4 MG SL PRN (21:30)
[2020-07-21] MEDS ORDERED: NITROGLYCERIN SINGLE TAB 0.4 MG SL ONE (21:32)
--- NOTE | 2020-07-21 22:29 | NUR ---
break rn: F/U AND D/C INSTRUCTIONS GIVEN TO PT AND HE V/U. PIV D/C'D AND CATH TIP INTACT. PT AMBULATED TO DISCHARGE WITHOUT ISSUE.
== END 2020-07-21 22:31 | disposition home or self-care (01) ==
LOC: ED 20:27 → UNDOADMIN 21:37 → EDIP 21:37 → ED 22:31
DX: R07.2 Precordial pain (principal); R77.8 Other specified abnormalities of plasma proteins; Z72.9 Problem related to lifestyle, unspecified; I25.10 Atherosclerotic heart disease of native coronary artery without angina pectoris; I25.2 Old myocardial infarction; I48.91 Unspecified atrial fibrillation; I11.0 Hypertensive heart disease with heart failure; Z98.61 Coronary angioplasty status; Z87.891 Personal history of nicotine dependence; Z95.1 Presence of aortocoronary bypass graft; Z88.6 Allergy status to analgesic agent
CPT/HCPCS: 36415; 71045; 80053; 84484; 85025; 93005; 96374; 99285; J2405